=== PATIENT | female | born 1980 | race Caucasian/White ===

== ENCOUNTER 2019-08-10 09:09 | Emergency (ER) | payer OTHER, SELFPAY ==
--- NOTE | ~2019-08-10 | US_ITS ---
US pelvic complete w TV DATE: 08/10/2019 11:13 INDICATION: Pelvic pain and cramping TECHNIQUE: Real-time imaging via transabdominal and transvaginal approaches COMPARISON: 09/07/2018 pelvic ultrasound FINDINGS: The uterus measures approximately 7.9 cm height, 3.9 cm anteroposterior and 5.8 cm transver se dimension. The central endometrial echo complex measures approximately 10 mm AP dimension. The ovaries are not well demonstrated. There is no fluid within the urinary bladder to provide a wind ow for pelvic visualization on the transabdominal examination. No apparent pelvic mass lesion or abno rmal pelvic fluid collection is identified. IMPRESSION: Limited examination Reviewed, dictated and finalized at [facility] Reviewed, dictated and finalized at [facility]. IMPRESSION: Limited examination
[2019-08-10 09:13] VITALS: BP 118/76; PULSE 107; RESP 18; TEMP 36.3; O2SAT 100
--- NOTE | 2019-08-10 09:14 | ED.ABDPAIN ---
HPI - Abdominal Pain General Chief Complaint: Abdominal Pain Stated Complaint: menstrual cramps Time Seen by Provider: 08/10/19 09:14 History of Present Illness HPI narrative: pelvic cramps since yesterday. Severe. Associated with nausea. Worse with movement. Tried 800 mg ibuprofen without relief. She has had similar pain in the past due to menstrual cramps. No vaginal discharge, constipation, diarrhea. Related Data Home Medications Medication Instructions Recorded Confirmed ibuprofen 08/10/19 omeprazole 08/10/19 sumatriptan succinate mg PO 08/10/19 verapamil 08/10/19 08/10/19 Allergies Allergy/AdvReac Type Severity Reaction Status Date / Time Penicillins Allergy Severe RASH, Verified 08/10/19 09:24 HIVES, ITCHING aspirin Allergy Intermediate Rash Verified 08/10/19 09:24 morphine Allergy Intermediate Itching Verified 08/10/19 09:24 latex Allergy Unknown Unknown Verified 08/10/19 09:24 Mushroom Allergy Mild Unknown Uncoded 08/10/19 09:24 Review of Systems Review of Systems: All systems reviewed & are unremarkable except as noted in HPI and below Constitutional: Constitutional: Denies fever(s) Cardiovascular: Cardiovascular: Denies chest pain Respiratory: Respiratory: Denies dyspnea Gastrointestinal: Gastrointestinal: Reports abdominal pain, Denies constipation, Denies diarrhea, Reports nausea and Denies vomiting Genitourinary: Genitourinary: Denies abnormal vaginal bleeding, Denies hematuria, Denies dysuria, Reports pelvic pain and Denies vaginal discharge Musculoskeletal: Musculoskeletal: Denies back pain Neurologic: Denies numbness and Denies weakness PMFSH Social History Social History Gender identity (if verbalized by the patient): Female Exam Const: General: healthy appearing, no acute distress and alert Nutritional Appearance: well nourished Orientation/consciousness: patient oriented x3 Limitations: no limitations HENMT: Head: normal to inspection Resp: Effort & Inspection: normal respiratory effort Cardio: Rate: regular rate Rhythm: regular rhythm GI: GI Palp: Yes Soft to palpation and No Tenderness to palpation present (GI) Skin: General skin exam: normal color Neuro: General: patient oriented x3, moves all extremities and CN's II-XI intact bilaterally Speech: normal speech Extrem: General: normal to inspection Course Vital Signs Vital signs: Vital Signs Temperature 36.3 C L 08/10/19 09:13 Pulse Rate 107 H 08/10/19 09:13 Respiratory Rate 18 08/10/19 09:13 Blood Pressure 118/76 08/10/19 09:13 Pulse Oximetry 100 08/10/19 09:13 Temperature 36.3 C L 08/10/19 09:13 Pulse Rate 72 08/10/19 11:15 Respiratory Rate 16 08/10/19 11:15 Blood Pressure 102/63 08/10/19 11:15 Pulse Oximetry 100 08/10/19 11:15 MDM - Abdominal Pain MDM Narrative Medical decision making narrative: Pain significantly improved no acute findings on somewhat limited US. Discussed patient with Dr. Vanessa joel will follow-up with her in clinic as needed Differential Diagnosis Differential diagnosis: Likely abdominal pain, constipation and pancreatitis Medical Records Attestation: I reviewed the patient's medical records. Lab Data Attestation: I reviewed the patient's lab results. Result diagrams: 08/10/19 09:54 08/10/19 09:54 Labs: Lab Results 08/10/19 08/10/19 08/10/19 Range/Units 09:54 09:54 09:54 WBC 11.4 H (4.5-10.0) K/mm3 RBC 4.48 (4.2-5.4) M/mm3 Hgb 10.6 L (12.0-15.0) g/dL Hct 35.4 L (37.0-47.0) % MCV 79.0 L (80-100) fl MCH 23.7 L (26-34) pg MCHC 29.9 L (32-36) g/dl RDW 20.0 H (11.5-14.5) % Plt Count 457 H (150-375) k/mm3 MPV 11.1 H (7.4-10.4) fl Immature Gran % (Auto) 0.4 (0-0.5) % Neut % (Auto) 67.6 (45.5-73.1) % Lymph % (Auto) 24.0 (18.3-44.2) % Pacific % (Auto) 5.5 (2.6-8.5) % Eos % (Auto)
[2019-08-10] MEDS: SODIUM CHLORIDE 0.9% IV 1,000 ML 999 ML IV CONT (09:45)
[2019-08-10] MEDS: ONDANSETRON INJ 4 MG/2 ML VIAL IV PUSH (09:50)
[2019-08-10] MEDS: KETOROLAC 30 MG/ML VIAL (*BKC) IV PUSH (09:50)
[2019-08-10 10:08] LABS: Basophils Absolute Auto 0.1 K/mm3 (0.0-0.1); Basophils Percent Auto 0.4 % (0.2-1.2); Eosinophils Absolute Auto 0.2 K/mm3 (0-0.3); Eosinophils Percent Auto 2.1 % (0-4.4); Hematocrit 35.4 % (37.0-47.0); Hemoglobin 10.6 g/dL (12.0-15.0); Immature Granulocyte Absolute 0.05 K/mm3 (0.00-0.031); Immature Granulocyte Percent A 0.4 % (0-0.5); Lymphocytes Absolute Auto 2.72 K/mm3 (0.9-3.2); Mean Corpuscular HGB Conc 29.9 g/dl (32-36); Mean Corpuscular Hemoglobin 23.7 pg (26-34); Mean Platelet Volume 11.1 fl (7.4-10.4); Monocytes Absolute Auto 0.6 K/mm3 (0.1-0.6); Monocytes Percent Auto 5.5 % (2.6-8.5); Neutrophils Absolute Auto 7.7 K/mm3 (1.3-6.7); Neutrophils Percent Auto 67.6 % (45.5-73.1); Platelet Count Result 457 k/mm3 (150-375); Red Blood Count 4.48 M/mm3 (4.2-5.4); White Blood Count 11.4 K/mm3 (4.5-10.0)
[2019-08-10 10:12] LABS: Add Urine Microscopic? YES; Appearance Urine Cloudy (Clear); Bacteria Urine Trace /hpf; Bilirubin Urine Negative (Negative); Blood Urine Negative (Negative); Color Urine Yellow (Yellow); Glucose Urine UA Negative (Negative); Ketones Urine Negative (Negative); Leukocyte Esterase Ur Negative LEU/UL (Negative); Mucus Urine Rare /lpf; Nitrate Urine Negative (Negative); Protein Urine Negative (Negative); RBC Urine 0-2 /hpf (0-2); Specific Grav Ur 1.016 (1.001-1.035); Squamous Epithelial Cell Urine Many /hpf (Few); Urobilinogen Urine Negative mg/dL (<2.0)
[2019-08-10 10:19] LABS: Alanine Aminotransferase 13 U/L (4-35); Albumin Level 4.4 g/dL (3.5-5.1); Alkaline Phosphatase 74 U/L (38-126); Aspartate Amino Transferase 21 U/L (14-36); Bilirubin,Total 0.2 mg/dL (0.2-1.3); Blood Urea Nitrogen 9 mg/dL (7-17); Calcium 9.3 mg/dL (8.4-10.2); Carbon Dioxide 26 mmol/L (22-30); Chloride 102 mmol/L (98-107); Estimated CRCL calculation 104 ml/min; Estimated Glomerular Filt Rate > 60; Glucose 163 mg/dL (65-105); Lipase 45 U/L (23-300); Potassium 3.9 mmol/L (3.4-5.0); Sodium 135 mmol/L (137-145)
[2019-08-10 11:15] VITALS: BP 102/63; PULSE 72; RESP 16; O2SAT 100
[2019-08-10 12:47] VITALS: BP 101/55; PULSE 75; RESP 18; O2SAT 100
== END 2019-08-10 12:47 | disposition home or self-care (01) ==
PROVIDERS: Emergency Provider Emergency Medicine; PCP Nurse Practitioner Family
DX: R10.2 Pelvic and perineal pain (principal)
CPT/HCPCS: 36415; 76830; 76856; 80053; 81001; 81025; 83690; 85025; 96361; 96374; 96375; 99284; J1885; J2405; J7030

== ENCOUNTER 2020-01-18 06:55 | Outpatient (NON) | payer OTHER, SELFPAY ==
[2020-01-18 18:25] LABS: SARS-CoV-2 RNA PCR Negative
== END 2020-01-18 06:56 ==
PROVIDERS: PCP Nurse Practitioner Family; Visit Provider Registered Nurse
DX: Z20.828 Contact with and (suspected) exposure to other viral communicable diseases (principal); R05 Cough; J34.89 Other specified disorders of nose and nasal sinuses; R53.83 Other fatigue; G44.89 Other headache syndrome
CPT/HCPCS: 87635; C9803; U0003

== ENCOUNTER → 2021-04-20 00:54 | Outpatient (CLI) | payer OTHER, SELFPAY ==
[2021-04-21 10:57] LABS: SARS-CoV-2 RNA PCR Positive
== END ==
PROVIDERS: PCP Nurse Practitioner Family; Visit Provider Nurse Practitioner Family
DX: U07.1 COVID-19 (principal)
CPT/HCPCS: C9803; U0003; U0005